=== PATIENT | female | born 1940 | race Caucasian/White ===

== ENCOUNTER 2020-12-12 04:37 | Inpatient (IN) | payer MEDICARE, OTHER ==
[~2020-12-12] VITALS: Ht 160 cm; Wt 68.0 kg
[2020-12-12 06:30] VITALS: BP 138/69
[2020-12-12] MEDS ORDERED: MAGNESIUM HYDROXIDE 30 ML UDC PO PRN (07:00)
[2020-12-12] MEDS ORDERED: ONDANSETRON HCL/PF 4 MG/2 ML VIAL IVP PRN (07:00)
[2020-12-12] MEDS ORDERED: Z GUARD REMEDY 2 OZ OINT TP PRN (07:00)
[2020-12-12] MEDS ORDERED: IV NS 0.9% 1,000 ML IV PRN (07:00)
[2020-12-12 08:00] VITALS: BP 148/67
--- NOTE | 2020-12-12 08:00 | NUR ---
RN OPENING NOTE PT IS AWAKE AND RESTING IN BED. A/O X 3 AND TURKISH SPEAKING. ABLE TO COMMUNICATE SOME NEEDS TO NURSES. NO COMPLAINT OF PAIN OR NAUSEA. CURRENTLY ON RA, NO SOB OR RESPIRATORY DISTRESS PRESENT. NO EDEMA. AMBULATORY WITH WALKER ASSIST. BATHROOM PRIVILEGES. SKIN IS INTACT. HL PRESENT ON R AC 20G AND FLUSHES WELL. SAFETY MEASURES IN PLACE. BED LOWERED. SIDE RAILS RAISED. CALL LIGHT WITHIN REACH. WILL CONTINUE TO MONITOR.
[2020-12-12] MEDS ORDERED: LEVO75TA7 PO (08:33)
[2020-12-12] MEDS ORDERED: [UNRECOGNIZED DRUG - CODE] PO (08:33)
[2020-12-12] MEDS ORDERED: DEXL60CA3 PO (08:33)
[2020-12-12] MEDS ORDERED: SIMV-49 PO (08:33)
[2020-12-12] MEDS ORDERED: LOSA50TA39 PO (08:33)
[2020-12-12] MEDS ORDERED: LORA10TA7 PO (08:33)
[2020-12-12] MEDS ORDERED: METF-440 PO (08:33)
[2020-12-12] MEDS ORDERED: TRAM50TA2 PO (08:33)
[2020-12-12] MEDS ORDERED: CELE-85 PO (08:33)
[2020-12-12] MEDS ORDERED: SULF1TAB48 PO (08:34)
[2020-12-12] MEDS: METRONIDAZOLE 500MG/ NS 100ML 500 MG in PREMIX 1 EA IV SCH ×2 (09:00→18:01)
[2020-12-12] MEDS: CEFTRIAXONE 1 G in IV D5W 50 ML IV SCH (09:15)
[2020-12-12] MEDS: HYDROCODONE/APAP 5/325MG TABLET PO PRN ×2 (14:46→20:57)
--- NOTE | 2020-12-12 15:26 | NUR ---
RN NOTE HL ON R AC IS OCCLUDED. MULTIPLE ATTEMPTS TO FIX SITE UNSUCCESSFUL. MULTIPLE ATTEMPTS TO INSERT NEW IV UNSUCCESSFUL. CHARGE NURSE NOTIFIED.
[2020-12-12 16:00] VITALS: BP 142/68
--- NOTE | 2020-12-12 16:12 | NUR ---
Patient speaks Wolof only.All info were obtained from patient caregiver Juan [phone] who is the [facility] provider [id number]. Patient resides locally on the first floor apartment with her older brother. She can ambulate around household but requires assistance during night and outside household due to blindness. No DME or homehealth reported. Caregiver is requesting wheelchair when discharge. Juan will provide ride when discharge. Addendum: 12/12/20 at 1612 by BRIONNA MEHTA RN Amended: Links added.
--- NOTE | 2020-12-12 17:21 | NUR ---
RN NOTE NEW IV INSERTED. R WRIST 22G. FLUSHES WELL
--- NOTE | 2020-12-12 18:08 | NUR ---
RN CLOSING NOTE PT IS AWAKE IN BED RESTING. A/O X3 AND PERSIAN SPEAKING. ABLE TO MAKE SOME NEEDS KNOWN TO NURSES. NO COMPLAINT OF PAIN OR NAUSEA. ON RA WITH NO SOB OR RESPIRATORY DISTRESS PRESENT. AMBULATORY WITH WALKER ASSIST. BATHROOM PRIVILEGES. ON 2G SODIUM RESTRICTED DIET. HL PRESENT ON R WRIST 22G. ROUTINE MEDS GIVEN. SAFETY MEASURES IN PLACE. SIDE RAILS RAISED. BED LOWERED. CALL LIGHT WITHIN REACH. WILL CONTINUE TO MONITOR. REPORT TO BE GIVEN TO NIGHT NURSE FOR LIBBY.
--- NOTE | 2020-12-12 19:30 | NUR ---
TELE TWENTY ONE DEALER INITIAL NOTES Received pt in bed awake and alert with IVF NS at 60ml /hr infusing on her right wrist patent and intact. no redness noted at this time. Pt denies any pain or any discomfort . No signs of any distress noted. Re- oriented where she at and how to used the call light system and encourage her to use if she needs some help or needs the nurse. Kept her warm and comfortable at all times. Will continue monitoring. bed alarm set for safety.
[2020-12-12 20:09] VITALS: BP 139/59
[2020-12-13 00:45] VITALS: BP 146/71
[2020-12-13] MEDS: METRONIDAZOLE 500MG/ NS 100ML 500 MG in PREMIX 1 EA IV SCH ×3 (01:18→17:04)
[2020-12-13 04:30] VITALS: BP 128/63
[2020-12-13 06:18] LABS: CALCIUM, SERUM 8.6 mg/dL (8.5-10.1); CARBON DIOXIDE 28 mmol/L (21-32); CHLORIDE 108 mmol/L (98-107); CREATININE 1.8 mg/dL (0.6-1.3); GLUCOSE 125 mg/dL (74-106); MAGNESIUM 2.4 mg/dL (1.8-2.4); PHOSPHORUS 3.8 mg/dL (2.5-4.9); POTASSIUM 4.8 mmol/L (3.5-5.1); SODIUM SERUM 142 mmol/L (136-145); UREA NITROGEN, BLOOD 29 mg/dL (7-18)
[2020-12-13 06:19] LABS: CHOLESTEROL 146 mg/dL (<200); HDL CHOLESTEROL 60 mg/dL (40-60); LDL 72 mg/dL (0-99); TRIGLYCERIDES 46 mg/dL (30-150)
[2020-12-13 06:31] LABS: BASOPHILS # (AUTO) 0.1 /CMM (0.0-0.2); BASOPHILS % (AUTO) 0.8 % (0.0-2.0); EOSINOPHILS % (AUTO) 4.3 % (0.0-6.0); HEMATOCRIT 33 % (33-45); HEMOGLOBIN 10.9 g/dL (11.5-14.8); LYMPHOCYTES # (AUTO) 1.1 /CMM (0.8-4.8); LYMPHOCYTES % (AUTO) 11.4 % (20.0-44.0); MEAN CORPUSCULAR HGB CONC 33 g/dl (31.0-36.0); MEAN CORPUSCULAR VOLUME 88 fL (82-100); MONOCYTES # (AUTO) 0.9 /CMM (0.1-1.30); MONOCYTES % (AUTO) 9.1 % (2.0-12.0); NEUTROPHILS # (AUTO) 7.2 /CMM (1.8-8.9); NEUTROPHILS % (AUTO) 74.4 % (43.0-81.0); PLATELET COUNT (AUTO) 245 /CMM (150-450); RED BLOOD CELL COUNT(AUTO) 3.75 MIL/uL (4.0-5.2); WHITE BLOOD COUNT (AUTO) 9.7 K/uL (4.3-11.0)
--- NOTE | 2020-12-13 07:32 | NUR ---
tele tool room attendant closing notes pt remain sleeping at this time without any distress or any discomfort noted. IVF still infusing. Tele SInus tach with BBB per monitor. kept her warm and comfortable at all times. place call light at reach. endorse to am nurse for continuity of care.
[2020-12-13 08:00] VITALS: BP 144/70
--- NOTE | 2020-12-13 08:00 | NUR ---
RN OPENING NOTE PT IS AWAKE IN BED. A/O X3 AND UNDERSTANDS [place]. NO COMPLAINT OF PAIN OR NAUSEA. ON TELE MONITOR, SSS WITH BBB. PT IS ABLE TO AMBULATE WITH WALKER ASSIST. BATHROOM PRIVILEGES. ON 2G SODIUM RESTRICTED DIET. SKIN IS INTACT. NO EDEMA PRESENT. IV PRESENT ON L WRIST 22G. SAFETY MEASURES IN PLACE. SIDE RAILS RAISED. BED LOWERED. CALL LIGHT WITHIN REACH. WILL CONTINUE TO MONITOR.
[2020-12-13] MEDS: CEFTRIAXONE 1 G in IV D5W 50 ML IV SCH (08:23)
[2020-12-13] MEDS: ACETAMINOPHEN 325 MG TABLET PO PRN ×2 (08:49→15:22)
--- NOTE | 2020-12-13 09:00 | NUR ---
RN NOTE UNABLE TO GIVE ABX DUE TO INFILTRATED IV LINE. MULTIPLE ATTEMPTS TO START NEW IV FAILED. WILL CONTINUE TO MONITOR.
--- NOTE | 2020-12-13 10:42 | NUR ---
RN NOTE IV SITE LEAKING. MULTIPLE ATTEMPTS TO INSERT NEW IV UNSUCCESSFUL. CHARGE NURSE NOTIFIED. MIDLINE ORDER OBTAINED AND NURSING VENTILATION WORKER NOTIFIED. WILL CONTINUE TO MONITOR.
[2020-12-13 16:00] VITALS: BP 148/82
--- NOTE | 2020-12-13 16:00 | NUR ---
RN NOTE NEW MIDLINE INSERTED. 18G IN R UPPER ARM. FLUSHES WELL. WILL CONTINUE TO MONITOR.
[2020-12-13] MEDS ORDERED: *INSULIN REGULAR(HUMULIN R)HUM 100 UNIT/ML VIAL SQ PRN (17:00)
[2020-12-13] MEDS ORDERED: DEXTROSE 50%-WATER 50 ML DISP.SYRIN IV PRN (17:00)
[2020-12-13] MEDS: BLOOD SUGAR DIAGNOSTIC 1 EACH STRIP VI SCH ×2 (17:04→23:42)
[2020-12-13] MEDS: INSULIN REGULAR, HUMAN 100 UNIT/ML 3 ML VIAL SQ PRN (17:16)
--- NOTE | 2020-12-13 18:11 | NUR ---
RN CLOSING NOTE PT IS AWAKE AND SITTING IN A CHAIR. A/O X3 AND CAN UNDERSTAND CITIZEN OF [place]. NO COMPLAINT OF PAIN OR NAUSEA. ON RA WITH NO SOB OR RESPIRATORY DISTRESS PRESENT. ON VOCATIONAL GUIDANCE COUNSELOR. ABLE TO AMBULATE WITH WALKER ASSIST. BATHROOM PRIVILEGES ALLOWED. SKIN IS INTACT. NO EDEMA PRESENT. 2G SODIUM DIET. ML PRESENT IN R UPPER ARM, 18G. ROUTINE MEDS GIVEN. SAFETY MEASURES IN PLACE. SIDE RAILS RAISED. BED LOWERED. CALL LIGHT WITHIN REACH. REPORT TO BE GIVEN TO NIGHT NURSE FOR LIBBY.
[2020-12-13 20:00] VITALS: BP 145/59
--- NOTE | 2020-12-13 21:09 | NUR ---
MS/TELE/RN DURING INITIAL ASSESSMENT , FOUND PATIENT ON BED AWAKE, ALERT, ORIENTED, COMFORTABLE, NO DISTRESS NOTED, CALL LIGHT IN REACH, FALL PRECAUTIONS PER PROTOCOL. FAMILY MEMBER CALLED, SPOKE TO THE PATIENT. NEEDS ATTENDED. WILL MONITOR.
[2020-12-13] MEDS ORDERED: SIMVASTATIN 40 MG TABLET PO SCH (22:00)
[2020-12-13] MEDS: CELECOXIB 100 MG CAPSULE PO SCH (23:44)
[2020-12-13] MEDS: HYDROCODONE/APAP 5/325MG TABLET PO PRN (23:45)
[2020-12-14] VITALS: BP 145/78
[2020-12-14] MEDS: METRONIDAZOLE 500MG/ NS 100ML 500 MG in PREMIX 1 EA IV SCH ×2 (01:07→09:36)
--- NOTE | 2020-12-14 03:20 | NUR ---
MS/TELE/RN PATIENT IS SLEEPING AT THIS TIME, APPEAR COMFORTABLE, NO SIGNS OF DISTRESS NOTED, CALL LIGHT IN REACH. WILL CONTINUE TO MONITOR.
[2020-12-14 04:00] VITALS: BP 145/78
[2020-12-14 05:57] LABS: BASOPHILS # (AUTO) 0.1 /CMM (0.0-0.2); BASOPHILS % (AUTO) 1.2 % (0.0-2.0); EOSINOPHILS % (AUTO) 5.7 % (0.0-6.0); HEMATOCRIT 33 % (33-45); HEMOGLOBIN 10.7 g/dL (11.5-14.8); LYMPHOCYTES # (AUTO) 1.6 /CMM (0.8-4.8); MEAN CORPUSCULAR HGB CONC 33 g/dl (31.0-36.0); MEAN CORPUSCULAR VOLUME 87 fL (82-100); MONOCYTES # (AUTO) 0.9 /CMM (0.1-1.30); MONOCYTES % (AUTO) 8.8 % (2.0-12.0); NEUTROPHILS # (AUTO) 7.4 /CMM (1.8-8.9); NEUTROPHILS % (AUTO) 69.3 % (43.0-81.0); PLATELET COUNT (AUTO) 255 /CMM (150-450); RED BLOOD CELL COUNT(AUTO) 3.72 MIL/uL (4.0-5.2); WHITE BLOOD COUNT (AUTO) 10.7 K/uL (4.3-11.0)
[2020-12-14 06:00] LABS: CALCIUM, SERUM 8.9 mg/dL (8.5-10.1); CARBON DIOXIDE 22 mmol/L (21-32); CHLORIDE 107 mmol/L (98-107); CREATININE 1.6 mg/dL (0.6-1.3); GLUCOSE 181 mg/dL (74-106); MAGNESIUM 2.1 mg/dL (1.8-2.4); PHOSPHORUS 3.4 mg/dL (2.5-4.9); POTASSIUM 4.8 mmol/L (3.5-5.1); SODIUM SERUM 139 mmol/L (136-145); UREA NITROGEN, BLOOD 29 mg/dL (7-18)
--- NOTE | 2020-12-14 06:06 | NUR ---
MS/TELE/RN PATIENT IS AWAKE, ALERT, COMFORTABLE, NO DISTRESS NOTED, ALL NEEDS ATTENDED AT THIS TIME, WILL CONTINUE TO MONITOR.
[2020-12-14] MEDS: INSULIN REGULAR, HUMAN 100 UNIT/ML 3 ML VIAL SQ PRN ×2 (06:31→12:55)
[2020-12-14] MEDS: BLOOD SUGAR DIAGNOSTIC 1 EACH STRIP VI SCH ×2 (06:52→12:55)
[2020-12-14] MEDS ORDERED: LEVOTHYROXINE SODIUM 75 MCG TABLET PO SCH (07:30)
[2020-12-14] MEDS ORDERED: PANTOPRAZOLE 40 MG TABLET.DR PO SCH (07:30)
--- NOTE | 2020-12-14 07:30 | NUR ---
DIRECTOR OF BLOOD NOTES PT AWAKE, ALERT, AMBULATING IN HER ROOM WITH STEADY GAIT, NOT IN PAIN OR DISTRESS, CALL LIGHT WITHIN REACH, IV FLUIDS INFUSING WELL, ASSISTED WITH TOILETING NEEDS.
[2020-12-14 08:00] VITALS: BP 178/85
[2020-12-14] MEDS: CELECOXIB 100 MG CAPSULE PO SCH (08:40)
[2020-12-14 08:41] VITALS: BP 178/85
[2020-12-14] MEDS: CEFTRIAXONE 1 G in IV D5W 50 ML IV SCH (08:41)
[2020-12-14] MEDS ORDERED: LOSARTAN POTASSIUM 50 MG TABLET PO SCH (09:00)
[2020-12-14] MEDS ORDERED: LORATADINE 10 MG TABLET PO SCH (09:00)
[2020-12-14] MEDS ORDERED: CEPH750C9 PO (11:27)
--- NOTE | 2020-12-14 14:25 | NUR ---
RN MS NOTES PT AWAKE, AMBULATORY, NO COMPLAINT OF PAIN, NOT IN DISTRESS, SEEN BY DR. BEJARANO DISCHARGE ORDER GIVEN, DISCHARGE AND MEDICATION INSTRUCTIONS PROVIDED TO PT AND PT'S CAREGIVER, VERBALIZED UNDERSTANDING, PRESCRIPTION GIVEN TO PT, BELONGINGS ACCOUNTED FOR, ASSISTED TO HOSPITAL LOBBY VIA WHEELCHAIR BY ENVIRONMENTAL ANALYST, PICKED UP BY HER CAREGIVER, LEFT VIA PRIVATE CAR IN STABLE CONDITION.
[2020-12-14] MEDS ORDERED: SIMVASTATIN 20 MG TABLET PO SCH (22:00)
== END 2020-12-14 14:25 | disposition home or self-care (01) | DRG 690 ==
LOC: TELE 06:14
PROVIDERS: ADMIT Student in an Organized Health Care Education/Training Program
PROC: 05H533Z Insertion of Infusion Device into Right Subclavian Vein, Percutaneous Approach (ICD-10-PCS; principal; 2020-12-13)
PROC: B546ZZA Ultrasonography of Right Subclavian Vein, Guidance (ICD-10-PCS; 2020-12-13)
DX: N10 Acute pyelonephritis (principal); N17.0 Acute kidney failure with tubular necrosis; E87.5 Hyperkalemia; D63.8 Anemia in other chronic diseases classified elsewhere; E11.9 Type 2 diabetes mellitus without complications; E03.9 Hypothyroidism, unspecified; E78.5 Hyperlipidemia, unspecified; E87.1 Hypo-osmolality and hyponatremia; I10 Essential (primary) hypertension; Z79.84 Long term (current) use of oral hypoglycemic drugs; B95.7 Other staphylococcus as the cause of diseases classified elsewhere; D72.829 Elevated white blood cell count, unspecified; K59.00 Constipation, unspecified
CPT/HCPCS: 36415; 80048-TC; 80061-TC; 82962-TC; 83735-TC; 84100-TC; 85025-TC; 87081-TC; A4216; G0378; J0696; J1815; J7030; J7060